=== PATIENT | female | born 1980 | race Caucasian/White ===

== ENCOUNTER 2020-10-14 14:26 | Outpatient (REF) | payer BC, SELFPAY | END 2020-10-14 14:27 | disposition home or self-care (01) | LOC: HO.LAB 14:26 | PROVIDERS: Visit Provider Internal Medicine | DX: Z20.828 Contact with and (suspected) exposure to other viral communicable diseases (principal) | CPT/HCPCS: C9803; U0003 ==

== ENCOUNTER 2022-09-28 16:21 | Outpatient (REF) | payer BC, SELFPAY ==
--- NOTE | ~2022-09-28 | MM_ITS ---
EXAMINATION: MM SCREENING DIGITAL BREAST TOMOSYNTHESIS, BILATERAL CLINICAL INFORMATION: Screening. Asymptomatic. Age 42. No prior breast imaging. No known family history breast cancer. The lifetime risk of breast cancer based on the Tyrer-Cuzick Model is 10%. COMPARISON: None (current study represents initial baseline exam). TECHNIQUE: Digital breast tomosynthesis is performed in both the craniocaudal and mediolateral oblique views along with computer-aided detection (CAD). Synthesized 2D images are generated from the tomosynthesis. FINDINGS: There are scattered areas of fibroglandular density (ACR BI-RADS breast composition Category b). There are no significant masses, abnormal calcifications, or other abnormalities. There is an incidental small intramammary node posterior upper outer left breast. The bilateral axilla and skin contours are unremarkable. MM/MM tomosynthesis screening BI IMPRESSION: No mammographic evidence of malignancy. ASSESSMENT: BI-RADS 2: Benign RECOMMENDATION: Routine annual mammography screening. This patient's information was entered into a reminder system with a target due date for their next mammogram.
== END 2022-09-28 16:22 | disposition home or self-care (01) ==
LOC: HO.MAMMO 16:21
PROVIDERS: PCP Hospitalist; Visit Provider Hospitalist
DX: Z12.31 Encounter for screening mammogram for malignant neoplasm of breast (principal)
CPT/HCPCS: 77063; 77067

== ENCOUNTER 2023-03-08 09:37 | Outpatient (REF) | payer BC, SELFPAY ==
[2023-03-08 11:59] LABS: Hematocrit 43.1 % (37.0-47.0); Hemoglobin 14.7 g/dl (12.0-16.0); Mean Corpuscular HGB Conc 34.1 g/dl (31.0-35.0); Mean Corpuscular Hemoglobin 30.4 pg (27.0-33.0); Mean Platelet Volume 8.5 fL (9.4-12.3); Platelet Count 326 X10*3/uL (160-400); Red Blood Count 4.84 X10*6/uL (4.20-5.50); Red Cell Distribution Width 11.8 % (11.0-16.0); White Blood Count 5.4 X10*3/uL (4.8-10.8)
[2023-03-08 12:31] LABS: Alanine Aminotransferase 8 U/L (0-31); Albumin Level 3.7 g/dL (3.5-5.0); Alkaline Phosphatase 82 U/L (39-117); Anion Gap 12 (12-20); Aspartate Amino Transferase 14 U/L (5-31); Bilirubin Total 1.1 mg/dL (0.0-1.0); Blood Urea Nitrogen 15 mg/dL (9-16); Calcium 8.7 mg/dL (8.4-10.2); Carbon Dioxide 23 mmol/L (22-29); Chloride 109 mmol/L (96-108); Cholesterol 206 mg/dL; Estimated Glomerular Filt Rate > 60; Glucose Fasting 85 mg/dL (60-99); HDL Cholesterol 51 mg/dL; LDL Cholesterol Calculated 142 mg/dl; Potassium 4.4 mmol/L (3.3-5.1); Sodium 140 mmol/L (135-145); Total Protein 6.2 g/dL (6.5-8.0); Triglycerides 69 mg/dL
[2023-03-08 12:40] LABS: TSH reflex Free T4 1.09 uIU/mL (0.32-4.0)
== END 2023-03-08 09:38 | disposition home or self-care (01) ==
LOC: HO.WFDLDS 09:37
PROVIDERS: Visit Provider Hospitalist
DX: Z00.00 Encounter for general adult medical examination without abnormal findings (principal); Z20.2 Contact with and (suspected) exposure to infections with a predominantly sexual mode of transmission; E66.9 Obesity, unspecified; F32.A Depression, unspecified; Z79.899 Other long term (current) drug therapy
CPT/HCPCS: 36415; 80053; 80061; 84443; 85027

== ENCOUNTER 2023-12-20 13:57 | Outpatient (AMB) | payer BC, SELFPAY ==
--- NOTE | 2023-12-20 13:59 | MHC.PC.OV ---
Vital Signs 12/20/23 14:03 Height 5 ft 5 in Weight 180 lb BMI 30.0 BP 118/72 Blood Pressure Location Lt brachial Position Sitting Pulse 59 Pulse Source Pulse Oximeter Pulse Oximetry (%) 98 Oxygen Delivery Method Room Air Intake Visit Reasons: Transfer of care, req. CPE Intake Note: Patient is here as a transfer of care patient, needs primary care. Allergies No Known Allergies Allergy (Unverified 03/04/23 16:01) Tobacco use date assessed: 03/04/23 HPI Transfer of care, req. CPE HPI Details Transfer of Care Prior PCP:? SV Last office visit/CPE:??Greater?than?1?year Acute issue(s): Pt reports she thinks [employer] is at [place]. Has had a mammogram which she states was at [place]. She states she is due. PMHx: Anxiety SurgHx: [place] tooth, eye surgery FHx: Mom: Parkinsons, CVA, Anxiety. SocHx: Nonsmoker. EtOH occasional 1-2 drinks. No drugs. 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 1. Little interest or pleasure in doing things: not at all 2. Feeling down, depressed, or hopeless: not at all 3. Trouble falling or staying asleep, or sleeping too much: not at all 4. Feeling tired or having little energy: several days 5. Poor appetite or overeating: not at all 6. Feeling bad about yourself - or that you are a failure or have let yourself or your family down: not at all 7. Trouble concentrating on things, such as reading the newspaper or watching television: not at all 8. Moving or speaking so slowly that other people could have noticed. Or the opposite - being so fidgety or restless that you have been moving around a lot more than usual: not at all 9. Thoughts that you would be better off or of hurting yourself in some way: not at all Total score: 1 Depression Screening Interpretation: Negative Depression Screening Done: Yes 99451 - PHQ-9 Billing: Yes Source: Developed by Drs. Librado Hi, Martine Freedman, Fer Timmons and colleagues, with an educational norbert from [employer]. Thrive Questionnaire Date Thrive assessed: 03/04/23 I am a: Patient What is your living situation today?: I have a steady place to live Within the past 12 months, did the food you bought not last and you didn't have the money to get more?: Never true Within the past 12 months, did you worry whether your food would run out before you got money to buy more?: Never true Do you have trouble paying for medicines?: No Do you have trouble getting transportation to medical appointments?: No Do you have trouble paying your heating and electricity bill?: No Do you have trouble taking care of your child, family member or friend?: No Do you have trouble with day-to-day activities such as bathing, preparing meals, shopping, managing finances, etc.?: No Are you currently unemployed and looking for a job?: No Are you interested in more education?: No THRIVE Score: 0 AUDIT C Alcohol Use Questionnaire (AUDIT-C) 1. How often do you have a drink containing alcohol?: 2-3 times a week 2. How many drinks containing alcohol do you have on a typical day when you are drinking?: 1 or 2 3. How often do you have six or more drinks on one occasion?: Never Total Score: 3 SANAM-7 AMB Questionnaire SANAM-7 Date SANAM - 7 assessed: 12/20/23 Feeling nervous, anxious, or on edge: 1 = Several days Not being able to stop or control worryin = Not at all Worrying too much about different things: 1 = Several days Trouble relaxin = Not at all Being so restless that it is hard to sit still: 0 = Not at all Becoming easily annoyed or irritable: 0 = Not at all Feeling afraid as if something awful might happen: 0 = Not at all Total SANAM-7 score (0-4 normal; 5-9 mild; 10-14 moderate; 15-21 severe): 2 Source: Developed by Drs. Librado Hi, Martine Freedman, Fer Timmons and colleagues, with an educational norbert from [employer]. SANAM-7 Assessment Billing SANAM-7 Assessment Tool: SANAM-7 Assessment 11082 (Treated) Review of Systems Const Denies chills, Denies fatigue, Denies fever(s), Denies headache(s) and Denies weakness Eyes Denies change in vision ENT Denies dizziness, Denies headache(s), Denies hearing loss, Denies nasal congestion, Denies sinus pain, Denies sinus pressure and Denies sore throat Card Denies chest pain, Denies lightheadedness, Denies dyspnea and Denies other (palpitations) Resp Denies cough, Denies dyspnea and Denies wheezing GI Denies abdominal pain, Denies melena, Denies hematochezia, Denies change in bowel habits, Denies dyspepsia and Denies nausea Denies hematuria and Denies dysuria Musc Denies abnormal gait, Denies myalgias, Denies arthralgias, Denies numbness and Denies tingling Skin/Breast Denies rash, Denies unusual bruising and Denies wounds Neuro Denies abnormal gait, Denies dizziness, Denies headache(s), Denies memory loss, Denies numbness, Denies Sensory deficit (Neuro), Denies tingling and Denies weakness Psych Denies anxiety, Denies depression and Denies memory loss Endo Denies cold intolerance, Denies fatigue, Denies heat intolerance, Denies polydipsia and Denies polyuria Raheem/Lymph Denies easy bleeding and Denies easy bruising Aller/Immun Denies wheezing Physical exam (Primary Care) Vital Signs: Last Vital Signs Pulse 59 12/20/23 14:03 BP 118/72 12/20/23 14:03 Pulse Ox 98 12/20/23 14:03 Oxygen Delivery Method Room Air 12/20/23 14:03 BMI result Body Mass Index 30.0 Tobacco/Smoking Status: Tobacco use Status Tobacco use date assessed 03/04/23 12/20/23 14:00 Patient Tobacco Use Status Never used Tobacco 12/20/23 14:00 PHQ-9: PHQ-9 Score PHQ-9: Total score 1 12/20/23 14:56 Depression Screening Interpretation: Negative Thrive Assessment: Date of Thrive Assessment Date Thrive assessed 03/04/23 12/20/23 14:00 Const General: no acute distress, well developed, alert and awake Nutritional Appearance: well nourished Orientation/consciousness: patient oriented x3 HENMT Head: Yes normocephalic and Yes atraumatic Ears: hearing grossly normal bilaterally and TM's normal bilaterally General nose exam: Normal external nose present and Normal nares present Mouth: Normal oral and palatal mucosa present and moist mucous membranes Teeth and gingiva: dentition normal Throat: Yes posterior oropharynx normal Eyes General: appearance normal, both eyes and all related structures Pupils: Equal, round and reactive pupils present and Pupil accommodation reflex normal EOM: EOMs intact bilaterally Neck Neck: Yes normal visual inspection, Yes no lymphadenopathy and Yes trachea midline Thyroid: Thyroid normal Carotids: no bruits Lymphatic: no lymphadenopathy noted Chest Chest palpation & inspection: normal inspection of the chest Resp Effort & Inspection: normal respiratory effort Auscultation: clear to auscultation bilaterally Cardio Rate: regular rate Rhythm: regular rhythm Heart sounds: S1 normal heart sound present, S2 normal heart sound present, no gallops, no murmurs and no rubs Bruits: no abdominal aortic bruits and no carotid bruits GI Palpation (GI): No Abdominal aortic bruit present, Soft to palpation, nontender, No hepatosplenomegaly present and No Rebound tenderness present Auscultation: normal bowel sounds General: Yes no CVA tenderness Back/Spine/Pelvis Back: no CVA tenderness Cervical Spine: cervical ROM normal and No Cervical spine tenderness Thoracic/Lumbar Spine: thoraco-lumbar ROM normal, No pain with thoraco-lumbar ROM, No thoracic spinal tenderness and No lumbar spinal tenderness Skin Lesions: no lesions Rashes: no rashes Trauma: no lacerations or abrasions Wounds: no wounds Nails: normal Neuro General: patient oriented x3 Cranial nerves: Yes Equal, round and reactive pupils present Cognition (Neuro): normal cognition Gait exam (Neuro): Normal gait present Motor exam (neuro): 5/5 motor strength present throughout Sensory Exam: No Sensory deficit (Neuro) Deep tendon reflexes (DTR's): Right patellar reflex intensity grade: 2+ and Left patellar reflex intensity grade: 2+ Extrem General: Yes normal to inspection and No edema Psych Appearance: grossly normal Affect: normal affect Attitude: cooperative Thought process: Normal thought process present Assessment and Plan Assessment & Plan (1) Adult general medical exam: Code(s): Z00.00 - Encounter for general adult medical examination without abnormal findings Plan: 43-year-old?female?presents?for?complete?physical?exam Encouraged?healthy?diet?with?active?lifestyle?and?plenty?of?exercise (2) Anxiety: Code(s): F41.9 - Anxiety disorder, unspecified Plan: Controlled?with?citalopram. 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 Panel Fast Today Z00.00 - Encounter for general adult medical examination without abnormal findings Lipid Panel Today Z00.00 - Encounter for general adult medical examination without abnormal findings Microalbumin, Random (w Creat) Today I10 - Essential (primary) hypertension UA and rflx microscopic Today Z00.00 - Encounter for general adult medical examination without abnormal findings TSH reflex Free T4 Today Z00.00 - Encounter for general adult medical examination without abnormal findings MM tomosynthesis screening BI Today Z12. - Encounter for screening mammogram for malignant neoplasm of breast Coding Level of Care Code Est Pt Level 3 (65656) Diagnoses Adult general medical exam Z00. Anxiety F41.9 Eye irritation H57.89 Screening mammogram for breast cancer Z12.31 Screening for cervical cancer Z12.4 Additional Codes SANAM-7 Assessment Billing - SANAM-7 Assessment Tool: SANAM-7 Assessment 53529 ([id number])
[2023-12-20 14:03] VITALS: BP 118/72; PULSE 59; O2SAT 98
== END 2023-12-20 15:12 | disposition home or self-care (01) ==
PROVIDERS: PCP Hospitalist; Visit Provider Family Medicine
DX: Z00.00 Encounter for general adult medical examination without abnormal findings (principal); F41.9 Anxiety disorder, unspecified; H57.89 Other specified disorders of eye and adnexa
CPT/HCPCS: 99396

== ENCOUNTER 2024-01-13 08:01 | Outpatient (REF) | payer BC, SELFPAY ==
[2024-01-13 11:42] LABS: Appearance Urine Clear; Color Urine Yellow; Glucose Urine UA Negative (Negative); Leukocyte Esterase Urine Trace (Negative); Nitrite Urine Negative (Negative); PH 7.5 (5.0-9.0); UMIC TRIGGER UA YES; Urine Blood Negative (Negative); Urine Ketones Negative (Negative); Urine Protein Negative (Neg-Trace)
[2024-01-13 11:47] LABS: Bacteria Urine 1+ (None Seen); Hyaline Casts Urine 0-2 /LPF (0-2); RBC Urine 0-2 /HPF (0-2); WBC Urine 0-5 /HPF (0-5)
[2024-01-13 12:40] LABS: Creatinine Urine 126.74 mg/dL; Microalbumin Urine < 5.0 mg/L
[2024-01-13 13:29] LABS: Alanine Aminotransferase 12 U/L (0-31); Albumin Level 3.9 g/dL (3.5-5.0); Alkaline Phosphatase 78 U/L (39-117); Anion Gap 12 (12-20); Aspartate Amino Transferase 15 U/L (5-31); Bilirubin Total 0.7 mg/dL (0.0-1.0); Blood Urea Nitrogen 10 mg/dL (9-16); Carbon Dioxide 25 mmol/L (22-29); Chloride 109 mmol/L (96-108); Cholesterol 192 mg/dL (<200); Estimated Glomerular Filt Rate > 60; Glucose Fasting 87 mg/dL (60-99); HDL Cholesterol 55 mg/dL (>40); LDL Cholesterol Calculated 125 mg/dL (<100); Potassium 4.7 mmol/L (3.3-5.1); Sodium 141 mmol/L (135-145); Total Protein 6.9 g/dL (6.5-8.0); Triglycerides 60 mg/dL (<150)
== END 2024-01-13 08:02 | disposition home or self-care (01) ==
LOC: HO.WFDLDS 08:01
PROVIDERS: Visit Provider Family Medicine
DX: Z00.00 Encounter for general adult medical examination without abnormal findings (principal); I10 Essential (primary) hypertension
CPT/HCPCS: 36415; 80053; 80061; 81001; 82043; 82570; 84443

== ENCOUNTER 2024-01-15 14:42 | Outpatient (AMB) | payer BC, SELFPAY ==
--- NOTE | 2024-01-15 14:36 | MHC.PC.OV ---
Intake Visit Reasons: f/u [facility] [phone] Intake Note: Patient is following up on her labs. Allergies No Known Allergies Allergy (Unverified 01/15/24 14:41) Tobacco use date assessed: 01/15/24 Dental Screening Dental Screen Date: 01/15/24 Did you have a dental visit in the last 12 months?: Yes Did you have a dental problem in the last 6 months where you did not have access to dental care?: No Was dental information given to patient?: Patient has dentist HPI f/u [facility] [phone] HPI Details 43 y/o female presents to f/u [facility] via telemedicine. Labs were drawn 01/13/24. Reviewed labs with pt. Triglycerides 60. TC 192. LDL 125. HDL 55. She notes she has been exercising more and has been trying to eat better. 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 Librado Hi, Martine Freedman, Fer Timmons and colleagues, with an educational norbert from [employer]. Physical exam (Primary Care) Tobacco/Smoking Status: Tobacco use Status Tobacco use date assessed 01/15/24 01/15/24 14:38 Patient Tobacco Use Status Never used Tobacco 01/15/24 14:38 e-Cigarette/Vaping Use Never Used 01/15/24 14:41 Thrive Assessment: Date of Thrive Assessment Date Thrive assessed 03/04/23 01/15/24 14:38 Telehealth Telehealth Location of provider rendering services: practice address Location of patient: address on file Patient Identification confirmed using: Name, : Yes Telehealth method: voice only Patient verbally consented to treatment: Yes Patient verbally consented to billing insurance company: Yes Patient informed of any privacy concerns related to visit: Yes Minutes spent on Phone/Video with Pt.: 6 Assessment and Plan Assessment & Plan (1) Screening mammogram for breast cancer: Code(s): Z12.31 - Encounter for screening mammogram for malignant neoplasm of breast Plan: Her?mammogram?is?ordered?and?she?will?get?this?scheduled (2) Elevated LDL cholesterol level: Code(s): E78.00 - Pure hypercholesterolemia, unspecified Plan: Cholesterol?levels?are?improved.??She?had?lost?about?16?lb?from?her?prior?check?in?March?2022 Cholesterol?levels?now?within?normal?range Encouraged?weight?loss?and?exercise (3) Asymptomatic bacteriuria: Code(s): R82.71 - Bacteriuria Plan: Encouraged?hydration Orders: Orders Comprehensive [place]. Panel Fast 10 Months Z00.00 - Encounter for general adult medical examination without abnormal findings Lipid Panel 10 Months Z00.00 - Encounter for general adult medical examination without abnormal findings TSH reflex Free T4 10 Months Z00.00 - Encounter for general adult medical examination without abnormal findings UA and rflx microscopic 10 Months Z00.00 - Encounter for general adult medical examination without abnormal findings Microalbumin, Random (w Creat) 10 Months I10 - Essential (primary) hypertension Coding Level of Care Code Tele Est Pt Level 2 (05805) Diagnoses Screening mammogram for breast cancer Z12. Elevated LDL cholesterol level E78.00 Asymptomatic bacteriuria R82.71
== END 2024-01-15 17:00 ==
LOC: HO.HMGFM 14:42
PROVIDERS: PCP Hospitalist; Visit Provider Family Medicine
DX: E78.00 Pure hypercholesterolemia, unspecified (principal); Z12.31 Encounter for screening mammogram for malignant neoplasm of breast; R82.71 Bacteriuria
CPT/HCPCS: 99441

== ENCOUNTER 2024-05-19 14:47 | Outpatient (REF) | payer BC, SELFPAY ==
[2024-05-19 18:05] LABS: Appearance Urine Clear; Color Urine Yellow; Glucose Urine UA Negative (Negative); Leukocyte Esterase Urine Trace (Negative); Nitrite Urine Negative (Negative); PH 5.5 (5.0-9.0); UMIC TRIGGER UA YES; Urine Blood Negative (Negative); Urine Ketones Negative (Negative); Urine Protein Negative (Neg-Trace)
[2024-05-19 18:10] LABS: Bacteria Urine Trace (None Seen); Hyaline Casts Urine 0-2 /LPF (0-2); RBC Urine 0-2 /HPF (0-2); Squamous Epithelial Cell Urine 0-2 /HPF (0-2); WBC Urine 0-5 /HPF (0-5)
[2024-05-20 04:00] LABS: Syphilis Screen Nonreactive (Nonreactive)
[2024-05-20 04:11] LABS: HBc Num1 0.11 S/CO (0.00-0.79); HBsAGNum1 0.26 S/CO (0.00-0.99); HIV AB/AG Nonreactive (Nonreactive); HIV Num 1 0.05 S/CO (0.00-0.99); Hepatitis B Core Antibody Nonreactive (Nonreactive); Hepatitis B Surface Antigen Negative (Negative); ~HepC Num1 0.14 S/CO (0.00-0.79); ~Hepatitis B Surface Antibody REACTIVE (Nonreactive); ~Hepatitis C Antibody Nonreactive (Nonreactive)
== END 2024-05-19 14:48 | disposition home or self-care (01) ==
LOC: HO.WFDLDS 14:47
PROVIDERS: Visit Provider Family Medicine
DX: Z11.3 Encounter for screening for infections with a predominantly sexual mode of transmission (principal)
CPT/HCPCS: 36415; 81001; 86704; 86706; 86780; 86803; 87340; 87389

== ENCOUNTER 2024-05-27 13:41 | Outpatient (REF) | payer BC, SELFPAY | END 2024-05-27 13:42 | disposition home or self-care (01) | LOC: HO.MAMMO 13:41 | PROVIDERS: PCP Family Medicine; Visit Provider Family Medicine | DX: Z12.31 Encounter for screening mammogram for malignant neoplasm of breast (principal) | CPT/HCPCS: 77063; 77067 ==

== ENCOUNTER → 2024-05-27 13:45 | Outpatient (BNV) | payer BC, SELFPAY | PROVIDERS: PCP Family Medicine; Visit Provider Radiology Diagnostic Radiology | DX: Z12.31 Encounter for screening mammogram for malignant neoplasm of breast (principal) | CPT/HCPCS: 77063; 77067 ==

== ENCOUNTER 2024-05-27 14:27 | Outpatient (REF) | payer BC, SELFPAY ==
[2024-05-28 06:07] LABS: CT PCR NOT DETECTED (Not Detect.); NG PCR NOT DETECTED (Not Detect.)
== END 2024-05-27 14:28 | disposition home or self-care (01) ==
LOC: HO.WFDLDS 14:27
PROVIDERS: Visit Provider Family Medicine
DX: Z11.3 Encounter for screening for infections with a predominantly sexual mode of transmission (principal)
CPT/HCPCS: 87491; 87591

== ENCOUNTER 2025-01-20 14:11 | Outpatient (AMB) | payer BC, SELFPAY ==
--- NOTE | 2025-01-20 14:26 | MHC.PC.OV ---
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 She normally follows with Dr. Johnston. CV: Blood pressure today in the office is 102/82. She eats healthy and exercises. Denies any chest pain or shortness on breath. Psych: used to be on celexa but feels well. Derm: Reports a mole that she noticed the other day on her mid back. No known family history of skin cancer but her mother has had multiple things excised. 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 1. Little interest or pleasure in doing things: not at all 2. Feeling down, depressed, or hopeless: not at all 3. Trouble falling or staying asleep, or sleeping too much: not at all 4. Feeling tired or having little energy: several days 5. Poor appetite or overeating: not at all 6. Feeling bad about yourself - or that you are a failure or have let yourself or your family down: not at all 7. Trouble concentrating on things, such as reading the newspaper or watching television: not at all 8. Moving or speaking so slowly that other people could have noticed. Or the opposite - being so fidgety or restless that you have been moving around a lot more than usual: not at all 9. Thoughts that you would be better off or of hurting yourself in some way: not at all Total score: 1 Depression Screening Interpretation: Negative Depression Screening Done: Yes 82263 - PHQ-9 Billing: Yes Source: Developed by Drs. Librado Hi, Martine Freedman, Fer Timmons and colleagues, with an educational norbert from [email or web address]. Thrive Questionnaire Date Thrive assessed: 01/20/25 I am a: Patient What is your living situation today?: I have a steady place to live Within the past 12 months, did the food you bought not last and you didn't have the money to get more?: Never true Within the past 12 months, did you worry whether your food would run out before you got money to buy more?: Never true Do you have trouble paying for medicines?: No Do you have trouble getting transportation to medical appointments?: No Do you have trouble paying your heating and electricity bill?: No Do you have trouble taking care of your child, family member or friend?: No Do you have trouble with day-to-day activities such as bathing, preparing meals, shopping, managing finances, etc.?: No Are you currently unemployed and looking for a job?: No Are you interested in more education?: No Please select the resources that you would like help with: None Currently or been in a relationship where the following occur: No concerns reported THRIVE Score: 0 SANAM-7 AMB Questionnaire SANAM-7 Date SANAM - 7 assessed: 12/20/23 Source: Developed by Drs. Librado Hi, Martine Freedman, Fer Timmons and colleagues, with an educational norbert from [email or web address]. Physical exam (Primary Care) Vital Signs: Last Vital Signs Pulse 77 01/20/25 14:31 Resp 14 01/20/25 14:31 BP 102/82 01/20/25 14:31 Pulse Ox 98 01/20/25 14:31 Oxygen Delivery Method Room Air 01/20/25 14:31 BMI result Body Mass Index 28.8 Tobacco/Smoking Status: Tobacco use Status Tobacco use date assessed 01/20/25 01/20/25 14:26 Patient Tobacco Use Status Never used Tobacco 01/20/25 14:26 e-Cigarette/Vaping Use Never Used 01/20/25 14:26 PHQ-9: PHQ-9 Score PHQ-9: Total score 1 01/20/25 14:26 Depression Screening Interpretation: Negative Thrive Assessment: Date of Thrive Assessment Date Thrive assessed 01/20/25 01/20/25 14:26 Currently or been in a relationship where the following occur: No concerns reported Const Orientation/consciousness: patient oriented x3 HENMT Ears: hearing grossly normal bilaterally and TM's normal bilaterally General nose exam: No nasal polyps present Face and sinus: Yes sinuses nontender Mouth: Normal oral and palatal mucosa present Eyes Pupils: Equal, round and reactive pupils present EOM: EOMs intact bilaterally Neck Other: There is a right anterior possible thyroid nodule. Neck: Yes full ROM and Yes no lymphadenopathy Chest Chest palpation & inspection: normal inspection of the chest Resp Auscultation: clear to auscultation bilaterally Cardio Rate: regular rate Rhythm: regular rhythm Heart sounds: S1 normal heart sound present and S2 normal heart sound present Peripheral pulses: Peripheral pulses 2+ throughout GI Other: Soft, nontender Auscultation: normal bowel sounds Rectal Exam - Female: deferred General: Yes no CVA tenderness Back/Spine/Pelvis Other: Nontender Back: no CVA tenderness Skin Other: There is a 1 cm by half a cm hyperpigmented lesion with an irregular bordered noted in the mid back. Neuro General: patient oriented x3, gait normal, CN's II-XI intact bilaterally and deep tendon reflexes 2+ bilaterally Cranial nerves: Yes Equal, round and reactive pupils present Motor exam (neuro): 5/5 motor strength present throughout Sensory Exam: double simultaneous stimulation for sensation normal Coordination: [id number] test normal and Romberg test negative Extrem General: Yes normal to inspection and Yes full ROM Psych Affect: normal affect Attitude: cooperative Thought process: Normal thought process present Thought content: Normal thought content present Insight: Good insight present (Psych) Judgement: Good judgement present (Psych) Coding Level of Care Code Est Pt Prev Care 40-64y(61775) Diagnoses Adult general medical exam Z00.00 Lump in neck R22.1 Skin lesion of back L98.9 Additional Codes PHQ-9 - 83324 - PHQ-9 Billing: Yes ([id number]) Assessment & Plan Assessment & Plan (1) Adult general medical exam: Code(s): Z00.00 - Encounter for general adult medical examination without abnormal findings Category: Medical Plan: Health maintenance reviewed. Labs ordered. Referral for colonoscopy given that they are booking so far out I will place the referral now. Referral to gynecology. (2) Lump in neck: Code(s): R22.1 - Localized swelling, mass and lump, neck Category: Medical Plan: Ultrasound ordered. (3) Skin lesion of back: Code(s): L98.9 - Disorder of the skin and subcutaneous tissue, unspecified Category: Medical Plan: Referral to Dermatology. Orders: Orders Comprehensive [place]. Panel Fast Today Z00.00 - Encounter for general adult medical examination without abnormal findings US soft tiss head and/or neck Today R22.1 - Localized swelling, mass and lump, neck Complete Blood Count Auto Diff Today Z00.00 - Encounter for general adult medical examination without abnormal findings Lipid Panel Today Z00.00 - Encounter for general adult medical examination without abnormal findings TSH reflex Free T4 Today Z00.00 - Encounter for general adult medical examination without abnormal findings Referrals Gastroenterology Referral Z12.11 - Encounter for screening for malignant neoplasm of colon INS[employer]LOADER Referral Z01.419 - Encounter for gynecological examination (general) (routine) without abnormal findings Dermatology Referral L98.9 - Disorder of the skin and subcutaneous tissue, unspecified
[2025-01-20 14:31] VITALS: BP 102/82; PULSE 77; RESP 14; O2SAT 98; BMI 28.8
== END 2025-01-20 17:05 ==
PROVIDERS: PCP Family Medicine; Visit Provider Physician Assistant
DX: Z00.00 Encounter for general adult medical examination without abnormal findings (principal); R22.1 Localized swelling, mass and lump, neck; L98.9 Disorder of the skin and subcutaneous tissue, unspecified

== ENCOUNTER → 2025-01-20 14:11 | Outpatient (BNVA) | payer BC, SELFPAY | PROVIDERS: PCP Family Medicine; Visit Provider Physician Assistant | DX: Z00.01 Encounter for general adult medical examination with abnormal findings (principal); R22.1 Localized swelling, mass and lump, neck; L98.9 Disorder of the skin and subcutaneous tissue, unspecified | CPT/HCPCS: 96127 ==

== ENCOUNTER 2025-01-22 08:47 | Outpatient (REF) | payer BC, SELFPAY ==
--- OUTSIDE RECORDS SUMMARY | 2025-01-22 09:08 | XMS_ITS | Encounter Summary ---
Author Organization [facility] Address [address] [place] [address] Care Team Providers Care Washing Machine Installer Name Role Phone Jennifer Wright MD Primary Care Provider Charan newton [facility], Pcp Primary Care Provider Unavailabl e Encounter Details Date Type Department Care Team Description 03/29/2010 SCAN Medical Records [address] [place] [id number] Abstract, Provider Social History Tobacco Use Types Packs/Day Years Used Date Smoking Tobacco: Never Alcohol Use Standard Drinks/Week Comments Yes 0 (1 standard drink = 0.6 oz pur e alcohol) occ Sex Assigned at Date Recorded Not on file documented as of this encounter Plan of Treatment Not on file documented as of this encounter Visit Diagnoses Not on filedocumented in this encounter Care Teams Washing Machine Installer Relationship Specialty Start Date End Date Jennifer Wright MD PCP - General 08/18/09 07/15/22 [facility], Pcp PCP - General Internal Medicine 07/16/22 documented as of this encounter
--- OUTSIDE RECORDS SUMMARY | 2025-01-22 09:08 | XMS_ITS | Encounter Summary ---
Author Organization [facility] Address [address] [place] [address] Care Team Providers Care Financial Service Rep Name Role Phone Jennifer Wright MD Primary Care Provider Charan newton [facility], Pcp Primary Care Provider Unavailabl e Encounter Details Date Type Department Care Team Description 06/16/2014 Orders Only TILLER WORKER - [address] [address] Social History Tobacco Use Types Packs/Day Years Used Date Smoking Tobacco: Never Smokeless Tobacco: Never Alcohol Use Standard Drinks/Week Comments Yes 0 (1 standard drink = 0.6 oz pur e alcohol) occ Sex Assigned at Date Recorded Not on file documented as of this encounter Plan of Treatment Not on file documented as of this encounter Visit Diagnoses Not on filedocumented in this encounter Care Teams Financial Service Rep Relationship Specialty Start Date End Date Jennifer Wright MD PCP - General 08/18/09 07/15/22 [facility], Pcp PCP - General Internal Medicine 07/16/22 documented as of this encounter
--- OUTSIDE RECORDS SUMMARY | 2025-01-22 09:08 | XMS_ITS | Encounter Summary ---
Author Organization [facility] Address [address] [place] [address] Care Team Providers Care Ornament Stitcher Name Role Phone Jennifer Wright MD Primary Care Provider [facility], Pcp Primary Care Provider Unavailabl e Reason for Visit * Reason Comments E-prescribe Rx Request Encounter Details Date Type Department Care Team Description 11/10/2021 Refill Medicine/Pediatrics - [address] [phone] Fabienne Henderson, FORGING PRESS LEVER TENDER E-prescribe Rx Request Social History Tobacco Use Types Packs/Day Years Used Date Smoking Tobacco: Never Smokeless Tobacco: Never Alcohol Use Standard Drinks/Week Comments Yes 0 (1 standard drink = 0.6 oz pur e alcohol) couple drinks every week or 2 Sex Assigned at Date Recorded Not on file COVID-19 Exposure Response Date Recorded In the last month, have you been in contact with someone who was confirmed or suspected to have Coronavirus / COVID-19? No / Unsure 10/18/2021 3:31 PM EST documented as of this encounter Miscellaneous Notes * Telephone Encounter - Rudy Powers - 11/13/2021 1:57 PM EST Last OV 10/18/21. Upcoming Appt: 11/16/21. Lab Results Component Value Date ALB 3.7 10/19/2021 SGOT 12 10/19/2021 SGPT 18 10/19/2021 TBILI 0.5 10/19/2021 ALKPHOS 111 10/19/2021 TP 7.3 10/19/2021 * Telephone Encounter - Machelle Barker - 11/13/2021 12:15 PM EST Patient would like script to be: E-PRESCRIBED/FAXED TO PHARMACY WHEN WAS THE PATIENT'S LAST APPOINTMENT IN ADULT MEDICINE? 10/18/21 WHEN WAS THE LAST TIME THE PATIENT SAW THEIR PCP? UNKNOWN Does patient have an upcoming appointment? Yes 11/16/21 (THE MEDICATION REQUESTED IS ON THE MED LIST ABOVE) All of the medications requested were on the CURRENT MEDS list Did you check the Pharmacy information above?: YES Patient wants: 30 -day supply Is this a mail order prescription request ? NO If the refill is from a FAXED refill request what is the RX # listed on the fax? N/A Patients current insurance carrier is: Payor: [facility] FFS / Plan: [employer] $15 / Product Type: HMO [id number] documented in this encounter Plan of Treatment Not on file documented as of this encounter Visit Diagnoses Not on filedocumented in this encounter Care Teams Ornament Stitcher Relationship Specialty Start Date End Date Jennifer Wright MD PCP - General 08/18/09 07/15/22 [facility], Pcp PCP - General Internal Medicine 07/16/22 documented as of this encounter
--- OUTSIDE RECORDS SUMMARY | 2025-01-22 09:08 | XMS_ITS | Clinical Summary ---
Author Organization [facility] Address [address] [place] [address] Care Team Providers Care Home Health Registered Nurse Name Role Phone [facility], Pcp Primary Care Provider Unavailabl e Allergies Active Allergy Reactions Severity Noted Date Comments Beef Allergy 06/21/2016 Itching and throat irritation Medications Medication Sig Dispensed Refills Start Date End Date Status IUD'S IU IUD None Entered 0 Active EPINEPHrine (EpiPen 2-Brent) 0.3 MG/0.3ML Solution Auto-injector Inject 1 Units as directed as needed (for allergic reaction/anaphylax is). 1 Each 2 10/18/2021 Active citalopram (CELEXA) 20 MG tablet TAKE 1 TABLET BY MOUTH EVERY DAY 30 Tablet 0 07/18/2022 Active Active Problems Problem Noted Date Snoring 03/29/2019 Overview: 03/2019 Home Sleep Study did not reveal sleep apnea. Anxiety 03/27/2011 Overweight 11/21/2010 Acne 10/03/2009 Immunizations Name Administration Dates Next Due Influenza (> 6 Months) 08/31/2020,2018,11/21/2010(Deferred: Patient Refused),10/04/2006,10/04/2005 Tdap 11/21/2010 Family History Medical History Relation Name Comments No Known Problems Father No Known Problems Mother CA Colon Paternal Grandfather CA Ovarian Paternal Grandmother possibl e, had hysterectomy for unknown reason No Known Problems Sister CA Esophageal Uncle metastatic to pancreas and brain CA Breast Negative Hx CA Prostate Negative Hx CA of Pancreas Negative Hx Cancer of Small Bowel Negative Hx Cancer of the Prostate Negative Hx Uterine Cancer Negative Hx Relation Name Status Comments Daughter Alive 2004, Prachi cervantes lthy Father Alive healthy, anxiet y Maternal Grandfather (Age age 60 ) [place] Maternal Grandmother diabete s, glaucoma Mother Alive sleep apnea , o bese, anxiety; hx [place] Paternal Grandfather stroke, anemia, Paternal Grandmother blocked artery Sister Alive adopted; mental health and developmental issues Son Alive 2006; Serge cervantes lthy Uncle Social History Tobacco Use Types Packs/Day Years Used Date Smoking Tobacco: Never Smokeless Tobacco: Never Alcohol Use Standard Drinks/Week Comments Yes 0 (1 standard drink = 0.6 oz pur e alcohol) couple drinks every week or 2 Sex Assigned at Date Recorded Not on file Last Filed Vital Signs Vital Sign Reading Time Taken Comments Blood Pressure 98/64 12/18/2021 1:56 PM EST Pulse 76 12/18/2021 1:56 PM EST Temperature 36.6 ??C (97.9 ??F) 12/18/2021 1:25 PM ES T Respiratory Rate 16 12/18/2021 1:56 PM EST Oxygen Saturation 98% 11/16/2021 3:54 PM EST RA Inhaled Oxygen Concentration - - Weight 81.6 kg (180 lb) 12/18/2021 1:56 PM EST Height 165.1 cm (5' 5 ) 11/16/2021 3:54 PM EST Body Mass Index 29.95 11/16/2021 3:54 PM EST Plan of Treatment Health Maintenance Due Date Last Done Comments Covid-19 Vaccine (#1) 1980 MAMMOGRAM 2020 DTAP/TDAP/TD (2 - Td or Tdap) 11/21/2020 11/21/2010 BASELINE HEALTH EXAM 40-64 09/04/202109/04, 09/04/2019, 09/04/2019, Additional history exists INFLUENZA (#1) 2024 08/31/2020, 09/02, 09/26/2019, Additional history exists CHOLESTEROL SCREENING 09/04/2024 09/04/2019 , 07/06/2016, 11/29/2010, Additional history exists BMI CHECK/ADVISE 12/02/2024 09/04/2019, 11/2018, 07/31/2017, Additional history exists CERVICAL CANCER SCREENING 12/18/20262021, 06/10/2014, 2011 (Exception), Additional history exists PNEUMOCOCCAL VACCINE FOR HIG H RISK PATIENTS (#1) 2045 Care Teams Home Health Registered Nurse Relationship Specialty Start Date End Date Community, Pcp PCP - General Internal Medicine 07/16/22
--- OUTSIDE RECORDS SUMMARY | 2025-01-22 09:08 | XMS_ITS | Encounter Summary ---
Author Organization [facility] Address [address] [place] [address] Care Team Providers Care Willow Worker Name Role Phone Jennifer Martino MD Primary Care Provider [facility], Pcp Primary Care Provider Unavailabl e Reason for Visit * Reason Onset Date Comments Wine Merchant Feedback 12/05/2021 Insurance Auth ( Tania Banda) Encounter Details Date Type Department Care Team Description 12/05/2021 Telephone Medicine/Pediatrics - [address] [phone] Jennifer Martino MD Wine Merchant Feedback (Insurance Auth (Tania Banda)) Social History Tobacco Use Types Packs/Day Years [...] have Coronavirus / COVID-19? No / Unsure 11/16/2021 3:39 PM EST documented as of this encounter Miscellaneous Notes * Telephone Encounter - Leatha Lisandro - 12/05/2021 1:14 PM EST Subscriber: SHASHI SCHMIDT Submitter : JENNIFER MARTINO Submitter Type: Provider Referral (#[id number]) Specialty Care Review Type: Initial Certification Status : Certified in total Service Type : Consultation Place Of Service : Office Visits : 6 Service Date : 12/05/2021-12/05/2022 Service Providers Provider Name ID Provider Type Specialty MD TANIA BANDA NPI : [id number] Performing Specialist documented in this encounter Plan of Treatment Not on file documented as of this encounter Visit Diagnoses Not on filedocumented in this encounter Care Teams Willow Worker Relationship Specialty Start Date End Date Jennifer Martino MD PCP - General 08/18/09 07/15/22 [facility], Pcp PCP - General Internal Medicine 07/16/22 documented as of this encounter
--- OUTSIDE RECORDS SUMMARY | 2025-01-22 09:09 | XMS_ITS | Encounter Summary ---
Author Organization [facility] Address [address] [place] [address] Care Team Providers Care Entry Driver Operator Name Role Phone Jennifer Wright MD Primary Care Provider [facility], Pcp Primary Care Provider Unavailabl e Reason for Visit * Reason Onset Date Comments E-prescribe Rx Request 2011 celexa Encounter Details Date Type Department Care Team Description 2011 Refill Medicine/Pediatrics - [address] [phone] Rose Marie Leyva PA-C E-prescribe Rx Request (celexa) Social History Tobacco Use Types Packs/Day Years Used Date Smoking Tobacco: Never Smokeless Tobacco: Never Alcohol Use Standard Drinks/Week Comments Yes 0 (1 standard drink = 0.6 oz pur e alcohol) occ Sex Assigned at Date Recorded Not on file documented as of this encounter Miscellaneous Notes * Telephone Encounter - Lena Guzman - 2011 9:04 AM EDT WHEN WAS THE PATIENT'S LAST APPOINTMENT IN ADULT MEDICINE? 03/12 WHEN WAS THE LAST TIME THE PATIENT SAW THEIR PCP? 11/10 pt has been seeing kenan elyva and she had aphy with kenna at this visit Does patient have an upcoming appointment? Yes 06/11 (THE MEDICATION REQUESTED IS ON THE MED LIST ABOVE) All of the medications requested were on the CURRENT MEDS list Did you check the Pharmacy information above?: YES Is this a mail order prescription request? NO Indicate how soon the patient needs the script: MALINI Patient would like script to be: FAXED TO PHARMACY Is the doctor here today?: YES Can the message wait until the doctor returns?: NO Patients current insurance carrier is: Payor: [employer] POS Plan: PPO $0 [employer] [id number] Product Type: PPO [id number] documented in this encounter Plan of Treatment Not on file documented as of this encounter Visit Diagnoses Not on filedocumented in this encounter Care Teams Entry Driver Operator Relationship Specialty Start Date End Date Jennifer Wright MD PCP - General 08/18/09 07/15/22 [facility], Pcp PCP - General Internal Medicine 07/16/22 documented as of this encounter
[2025-01-22 11:08] LABS: MANUAL DIFF FLAG NO
[2025-01-22 11:11] LABS: Basophils Percent Auto 0.7 % (0-2); Eosinophils Absolute Auto 0.1 X10*3/uL (0.0-0.4); Eosinophils Percent Auto 1.6 % (0-4); Hematocrit 44.3 % (37.0-47.0); Hemoglobin 14.9 g/dl (12.0-16.0); Imm Gran Abs Auto 0.02 X10*3/uL (0.00-0.03); Imm Gran Pct Auto 0.4 % (0.0-0.4); Lymphocytes Absolute Auto 1.4 X10*3/uL (1.2-4.9); Lymphocytes Percent Auto 25.9 % (20-40); Mean Corpuscular HGB Conc 33.6 g/dl (31.0-35.0); Mean Corpuscular Hemoglobin 29.7 pg (27.0-33.0); Mean Corpuscular Volume 88.4 fL (80.0-98.0); Mean Platelet Volume 8.7 fL (9.4-12.3); Monocytes Absolute Auto 0.3 X10*3/uL (0.1-1.2); Monocytes Percent Auto 5.9 % (2-11); Neutrophils Absolute Auto 3.6 x10*3/uL (2.0-8.3); Neutrophils Percent Auto 65.5 % (45-73); Platelet Count 313 X10*3/uL (160-400); Red Blood Count 5.01 X10*6/uL (4.20-5.50); Red Cell Distribution Width 12.1 % (11.0-16.0); White Blood Count 5.6 X10*3/uL (4.8-10.8)
[2025-01-22 11:34] LABS: Alanine Aminotransferase 12 U/L (0-31); Albumin Level 4.1 g/dL (3.5-5.0); Alkaline Phosphatase 66 U/L (39-117); Anion Gap 10 (12-20); Aspartate Amino Transferase 19 U/L (5-31); Bilirubin Total 0.9 mg/dL (0.0-1.0); Blood Urea Nitrogen 10 mg/dL (9-16); Calcium 9.2 mg/dL (8.4-10.2); Carbon Dioxide 26 mmol/L (22-29); Chloride 108 mmol/L (96-108); Cholesterol 225 mg/dL (<200); Estimated Glomerular Filt Rate > 60; Glucose Fasting 82 mg/dL (60-99); HDL Cholesterol 49 mg/dL (>40); LDL Cholesterol Calculated 160 mg/dL (<100); Potassium 3.9 mmol/L (3.3-5.1); Sodium 140 mmol/L (135-145); Total Protein 7.5 g/dL (6.5-8.0); Triglycerides 82 mg/dL (<150)
[2025-01-22 11:40] LABS: TSH reflex Free T4 1.34 uIU/mL (0.32-4.0)
== END 2025-01-22 08:48 | disposition home or self-care (01) ==
LOC: HO.WFDLDS 08:47
PROVIDERS: Visit Provider Physician Assistant
DX: Z00.00 Encounter for general adult medical examination without abnormal findings (principal); Z13.6 Encounter for screening for cardiovascular disorders
CPT/HCPCS: 36415; 80053; 80061; 84443; 85025

== ENCOUNTER 2025-02-16 16:05 | Outpatient (REF) | payer BC, SELFPAY | END 2025-02-16 16:06 | disposition home or self-care (01) | LOC: HO.US 16:05 | PROVIDERS: Visit Provider Physician Assistant | DX: R22.1 Localized swelling, mass and lump, neck (principal) | CPT/HCPCS: 76536 ==

== ENCOUNTER → 2025-02-16 16:07 | Outpatient (BNV) | payer BC, SELFPAY | PROVIDERS: Visit Provider Radiology Diagnostic Radiology | DX: R22.1 Localized swelling, mass and lump, neck (principal) | CPT/HCPCS: 76536 ==

== ENCOUNTER 2025-03-10 15:59 | Outpatient (AMB) | payer BC, SELFPAY ==
--- NOTE | 2025-03-10 15:32 | MHC.PC.OV ---
Intake Visit Reasons: Test results Intake Note: Discuss anxiety and results. Cluster Bore Operator Required: No Allergies No Known Allergies Allergy (Verified 03/10/25 15:32) Medication List - Last Reconciled 03/10/25 by Leisa Bryant PA-C levonorgestrel (Mirena) intrauterine Tobacco use date assessed: 03/10/25 Dental Screening Dental Screen Date: 01/15/24 HPI Test results HPI Details Pt is a 44 year old female who presents today for a f/u Psych: used to be on celexa and wonders if she should go back on this as recently her anxiety has been exacerbated. Recently had a neck ultrasound for an enlarged lymph node which was overall benign appearing. She says that she still feels a lymph node and at times it is makes her nervous. She has not been sick recently. 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 Intelligence Consultant: Overdue-requests referral today. Mammo:UTD 05/25 Colonoscopy: due this year Mother had a stroke 73 years old [facility] Medical History Anxiety Surgical History H/O wisdom tooth extraction H/O eye surgery Family History Father Anxiety Mother Anxiety Parkinson disease Stroke Social History (Updated 03/10/25 @ 15:36 by Akiko Paez CMA) Household Members: Spouse and Children Housing: House Alcohol intake: current Alcohol intake frequency: holidays/special occasions only Patient Tobacco Use Status: Never used Tobacco e-Cigarette/Vaping Use: Never Used Use of substances other than those prescribed or required for medical reasons: No service: No Current occupational status: 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 1. Little interest or pleasure in doing things: several days 2. Feeling down, depressed, or hopeless: several days 3. Trouble falling or staying asleep, or sleeping too much: more than half the days 4. Feeling tired or having little energy: more than half the days 5. Poor appetite or overeating: several days 6. Feeling bad about yourself - or that you are a failure or have let yourself or your family down: not at all 7. Trouble concentrating on things, such as reading the newspaper or watching television: several days 8. Moving or speaking so slowly that other people could have noticed. Or the opposite - being so fidgety or restless that you have been moving around a lot more than usual: not at all 9. Thoughts that you would be better off or of hurting yourself in some way: not at all Total score: 8 Depression Screening Interpretation: Positive Depression Screening Done: Yes 22315 - PHQ-9 Billing: Yes Source: Developed by Drs. Librado Hi, Martine Freedman, Fer Timmons and colleagues, with an educational norbert from [employer]. Thrive Questionnaire Date Thrive assessed: 03/10/25 I am a: Patient What is your living situation today?: I have a steady place to live Within the past 12 months, did the food you bought not last and you didn't have the money to get more?: Never true Within the past 12 months, did you worry whether your food would run out before you got money to buy more?: Never true Do you have trouble paying for medicines?: No Do you have trouble getting transportation to medical appointments?: No Do you have trouble paying your heating and electricity bill?: No Do you have trouble taking care of your child, family member or friend?: No Do you have trouble with day-to-day activities such as bathing, preparing meals, shopping, managing finances, etc.?: No Are you currently unemployed and looking for a job?: No Are you interested in more education?: No Please select the resources that you would like help with: None Currently or been in a relationship where the following occur: No concerns reported THRIVE Score: 0 SANAM-7 AMB Questionnaire SANAM-7 Date SANAM - 7 assessed: 03/10/25 Feeling nervous, anxious, or on edge: 3 = Nearly every day Not being able to stop or control worryin = Nearly every day Worrying too much about different things: 3 = Nearly every day Trouble relaxin = Several days Being so restless that it is hard to sit still: 1 = Several days Becoming easily annoyed or irritable: 1 = Several days Source: Developed by Drs. Librado Hi, Martine Freedman, Fer Timmons and colleagues, with an educational norbert from [employer]. SANAM-7 Assessment Billing SANAM-7 Assessment Tool: SANAM-7 Assessment 18335 Physical exam (Primary Care) Tobacco/Smoking Status: Tobacco use Status Tobacco use date assessed 03/10/25 03/10/25 15:38 Patient Tobacco Use Status Never used Tobacco 03/10/25 15:38 e-Cigarette/Vaping Use Never Used 03/10/25 15:38 PHQ-9: PHQ-9 Score PHQ-9: Total score 8 03/10/25 15:38 Depression Screening Interpretation: Positive Thrive Assessment: Date of Thrive Assessment Date Thrive assessed 03/10/25 03/10/25 15:38 Currently or been in a relationship where the following occur: No concerns reported Telehealth Telehealth Telehealth Platform: Telephone Location of provider rendering services: practice address Location of patient: address on file Patient Identification confirmed using: Name, : Yes Telehealth method: voice only Patient verbally consented to treatment: Yes Patient verbally consented to billing insurance company: Yes Patient informed of any privacy concerns related to visit: Yes Minutes spent on Phone/Video with Pt.: 15 Results Reviewed Results Reviewed: Laboratory Tests 01/22/25 08:48 WBC 5.6 RBC 5.01 Hgb 14.9 Hct 44.3 Plt Count 313 Sodium 140 Potassium 3.9 Chloride 108 Carbon Dioxide 26 Anion Gap 10 L BUN 10 Creatinine 0.75 Estimated GFR > 60 Fasting Glucose 82 AST 19 ALT 12 Alkaline Phosphatase 66 Triglycerides 82 Cholesterol 225 H LDL Cholesterol, Calc 160 H HDL Cholesterol 49 Comparison: None Findings: Focused ultrasound evaluation performed in an area of palpable concern within the right anterior neck. There is a 2.0 x 0.5 x 1.1 cm normal morphology lymph node containing a fatty hilum in the area of palpable concern. A 7 mm TR 4 nodule was also noted within the right lobe of the thyroid gland. This does not meet criteria for follow-up. Impression: 1. There is a small lymph node within the neck in the area of palpable concern, most likely benign. This document has been electronically signed by: Beatriz Friedman MD on 02/18/2025 16:41:32 Coding Level of Care Code Est Pt Level 2 (88644) Diagnoses Lump in neck R22.1 Generalized anxiety disorder F41.1 Additional Codes SANAM-7 Assessment Billing - SANAM-7 Assessment Tool: SANAM-7 Assessment 54821 ([id number]) PHQ-9 - 45138 - PHQ-9 Billing: Yes ([id number]) Assessment & Plan Assessment & Plan (1) Lump in neck: Code(s): R22.1 - Localized swelling, mass and lump, neck Category: Medical Plan: Reviewed the ultrasound which was reassuring. We will reassess neck in 4-6 weeks. Labs ordered (2) Generalized anxiety disorder: Code(s): F41.1 - Generalized anxiety disorder Category: Medical Plan: Start Celexa. Discussed risks and benefits and adverse effects of this medication. Follow up in 4-6 weeks. Sooner if needed. Orders: Orders Complete Blood Count Auto Diff Today F41.1 - Generalized anxiety disorder, R22.1 - Localized swelling, mass and lump, neck Medications: New citalopram (Celexa) 10 mg PO DAILY 90 tabs 1RF
--- OUTSIDE RECORDS SUMMARY | 2025-03-10 17:41 | XMS_ITS | Encounter Summary ---
Author Organization [facility] Address [address] [place] [address] Care Team Providers Care Software Systems Architect Name Role Phone Jennifer Wright MD Primary Care Provider Charan newton [facility], Pcp Primary Care Provider Unavailabl e Encounter Details Date Type Department Care Team Description 06/16/2014 Orders Only SLITTING MACHINE OPERATOR - [address] [address] Social History Tobacco Use Types Packs/Day Years [...] on filedocumented in this encounter Care Teams Software Systems Architect Relationship Specialty Start Date End Date Jennifer Wright MD PCP - General 08/18/09 07/15/22 [facility], Pcp PCP - General Internal Medicine 07/16/22 documented as of this encounter
--- OUTSIDE RECORDS SUMMARY | 2025-03-10 17:41 | XMS_ITS | Encounter Summary ---
Author Organization [facility] Address [address] [place] [address] Care Team Providers Care Manager Statistics Name Role Phone Jennifer Wright MD Primary Care Provider [facility], Pcp Primary Care Provider Unavailabl e Reason for Visit * Reason Onset Date Comments E-prescribe Rx Request 2011 celexa Encounter Details Date Type Department Care Team Description 2011 Refill Medicine/Pediatrics - [address] [phone] Rose Marie Leyva PA-C E-prescribe Rx Request [...] THEIR PCP? 11/10 pt has been seeing kenna leyva and she had aphy with kenna at [...] is: Payor: [employer] POS Plan: PPO $0 [employer] [id number] Product Type: PPO [id number] documented in this encounter Plan of Treatment Not on file documented as of this encounter Visit Diagnoses Not on filedocumented in this encounter Care Teams Manager Statistics Relationship Specialty Start Date End Date Jennifer Wright MD PCP - General 08/18/09 07/15/22 [facility], Pcp PCP - General Internal Medicine 07/16/22 documented as of this encounter
--- OUTSIDE RECORDS SUMMARY | 2025-03-10 17:41 | XMS_ITS | Encounter Summary ---
Author Organization [facility] Address [address] [place] [address] Care Team Providers Care Apron Cleaner Name Role Phone Jennifer Wright MD Primary Care Provider Charan newton [facility], Pcp Primary Care Provider Unavailabl e Encounter Details Date Type Department Care Team Description 09/15/2019 Walk In Clinic Visit Medical Records [address] [place] [id number] [place] [address] Urgent Social History Tobacco Use Types Packs/Day Years [...] on filedocumented in this encounter Care Teams Apron Cleaner Relationship Specialty Start Date End Date Jennifer Wright MD PCP - General 08/18/09 07/15/22 [facility], Pcp PCP - General Internal Medicine 07/16/22 documented as of this encounter
--- OUTSIDE RECORDS SUMMARY | 2025-03-10 17:41 | XMS_ITS | Encounter Summary ---
Author Organization [facility] Address [address] [place] [address] Care Team Providers Care Home School Coordinator Name Role Phone Jennifer Wright MD Primary Care Provider [facility], Pcp Primary Care Provider Unavailabl e Reason for Visit * Reason Comments E-prescribe Rx Request Encounter Details Date Type Department Care Team Description 11/10/2021 Refill Medicine/Pediatrics - [address] [phone] Fabienne Henderson, POULTRY FARMWORKER E-prescribe Rx Request Social History Tobacco Use [...] Patients current insurance carrier is: Payor: [facility]/[employer] FFS / Plan: [employer] $15 / Product Type: HMO [id number] documented in this encounter Plan of Treatment Not on file documented as of this encounter Visit Diagnoses Not on filedocumented in this encounter Care Teams Home School Coordinator Relationship Specialty Start Date End Date Jennifer Wright MD PCP - General 08/18/09 07/15/22 [facility], Pcp PCP - General Internal Medicine 07/16/22 documented as of this encounter
== END 2025-03-10 17:05 ==
LOC: HO.HMCFM 15:59
PROVIDERS: PCP Physician Assistant; Visit Provider Physician Assistant
DX: R22.1 Localized swelling, mass and lump, neck (principal); F41.1 Generalized anxiety disorder

== ENCOUNTER → 2025-03-10 15:59 | Outpatient (BNVA) | payer BC, SELFPAY | PROVIDERS: PCP Physician Assistant; Visit Provider Physician Assistant | DX: R22.1 Localized swelling, mass and lump, neck (principal); F41.1 Generalized anxiety disorder | CPT/HCPCS: 96127 ==

== ENCOUNTER 2025-04-01 08:19 | Outpatient (AMB) | payer BC, SELFPAY ==
[2025-04-01 08:35] VITALS: BP 100/64; PULSE 64; RESP 12; O2SAT 98; BMI 28.5
--- NOTE | 2025-04-01 08:35 | MHC.PC.OV ---
Vital Signs 04/01/25 08:35 Height 5 ft 5 in Weight 171 lb BMI 28.5 BP 100/64 Blood Pressure Location Rt brachial Position Sitting Respiration 12 Pulse 64 Pulse Source Pulse Oximeter Pulse Oximetry (%) 98 Oxygen Delivery Method Room Air Intake Visit Reasons: 4 to 6 weeks f/u Allergies No Known Allergies Allergy (Verified 03/10/25 15:32) Medication List - Last Reconciled 04/01/25 by Leisa Bryant PA-C levonorgestrel (Mirena) intrauterine Tobacco use date assessed: 04/01/25 Dental Screening Dental Screen Date: 04/01/25 Did you have a dental visit in the last 12 months?: Yes Did you have a dental problem in the last 6 months where you did not have access to dental care?: No Was dental information given to patient?: Patient has dentist HPI 4 to 6 weeks f/u HPI Details Patient is a 44-year-old female who presents today for a follow up. Psych: She was seen recently and started on Celexa 10 mg. She states that for 1 week of you she increase the dosage to 20 mg which she finds very effective. States that the anxiety is significantly improved and that this is a very good dose for her. Lymph: She was seen a couple of months ago and noted to have a swollen lymph node of the right side of her neck. She says at times she can still feel the lymph node. There was an ultrasound done that was very reassuring in appear to be benign. She is scheduled for her mammogram and colonoscopy this summer. 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 1. Little interest or pleasure in doing things: not at all 2. Feeling down, depressed, or hopeless: not at all 3. Trouble falling or staying asleep, or sleeping too much: not at all 4. Feeling tired or having little energy: not at all 5. Poor appetite or overeating: several days 6. Feeling bad about yourself - or that you are a failure or have let yourself or your family down: not at all 7. Trouble concentrating on things, such as reading the newspaper or watching television: not at all 8. Moving or speaking so slowly that other people could have noticed. Or the opposite - being so fidgety or restless that you have been moving around a lot more than usual: not at all 9. Thoughts that you would be better off or of hurting yourself in some way: not at all Total score: 1 Depression Screening Interpretation: Negative Depression Screening Done: Yes 31641 - PHQ-9 Billing: Yes Source: Developed by Drs. Librado Hi, Martine Freedman, Fer Timmons and colleagues, with an educational norbert from [employer]. Thrive Questionnaire Date Thrive assessed: 12/14/24 I am a: Patient What is your living situation today?: I have a steady place to live Within the past 12 months, did the food you bought not last and you didn't have the money to get more?: Never true Within the past 12 months, did you worry whether your food would run out before you got money to buy more?: Never true Do you have trouble paying for medicines?: No Do you have trouble getting transportation to medical appointments?: No Do you have trouble paying your heating and electricity bill?: No Do you have trouble taking care of your child, family member or friend?: No Do you have trouble with day-to-day activities such as bathing, preparing meals, shopping, managing finances, etc.?: No Are you currently unemployed and looking for a job?: No Are you interested in more education?: No Please select the resources that you would like help with: None Currently or been in a relationship where the following occur: No concerns reported THRIVE Score: 0 SANAM-7 AMB Questionnaire SANAM-7 Date SANAM - 7 assessed: 04/01/25 Feeling nervous, anxious, or on edge: 0 = Not at all Not being able to stop or control worryin = Several days Worrying too much about different things: 1 = Several days Trouble relaxin = Not at all Being so restless that it is hard to sit still: 0 = Not at all Becoming easily annoyed or irritable: 0 = Not at all Feeling afraid as if something awful might happen: 0 = Not at all Total SANAM-7 score (0-4 normal; 5-9 mild; 10-14 moderate; 15-21 severe): 2 Source: Developed by Drs. Librado Hi, Martine Freedman, Fer Timmons and colleagues, with an educational norbert from [employer]. SANAM-7 Assessment Billing SANAM-7 Assessment Tool: SANAM-7 Assessment 18090 Physical exam (Primary Care) Vital Signs: Last Vital Signs Pulse 64 04/01/25 08:35 Resp 12 04/01/25 08:35 BP 100/64 04/01/25 08:35 Pulse Ox 98 04/01/25 08:35 Oxygen Delivery Method Room Air 04/01/25 08:35 BMI result Body Mass Index 28.5 Tobacco/Smoking Status: Tobacco use Status Tobacco use date assessed 04/01/25 04/01/25 08:37 Patient Tobacco Use Status Never used Tobacco 04/01/25 08:36 e-Cigarette/Vaping Use Never Used 04/01/25 08:36 PHQ-9: PHQ-9 Score PHQ-9: Total score 1 04/01/25 09:03 Depression Screening Interpretation: Negative Thrive Assessment: Date of Thrive Assessment Date Thrive assessed 12/14/24 04/01/25 08:36 Currently or been in a relationship where the following occur: No concerns reported Const Orientation/consciousness: patient oriented x3 HENMT Ears: hearing grossly normal bilaterally Neck Thyroid: Thyroid normal Lymphatic: no lymphadenopathy noted Resp Auscultation: clear to auscultation bilaterally Cardio Rate: regular rate Rhythm: regular rhythm Heart sounds: S1 normal heart sound present and S2 normal heart sound present GI Inspection: Yes normal to inspection Palpation (GI): Soft to palpation and Other GI palpation findings present (nontender, no cva tenderness) Auscultation: normoactive bowel sounds Rectal Exam - Female: deferred Skin General skin exam: no rashes or lesions noted Neuro General: patient oriented x3, gait normal and no focal motor deficits Coding Level of Care Code Est Pt Level 4 (82365) Complex EM visit Add On G2211 Diagnoses Lump in neck R22.1 Generalized anxiety disorder F41.1 Additional Codes SANAM-7 Assessment Billing - SANAM-7 Assessment Tool: SANAM-7 Assessment 86994 ([id number]) PHQ-9 - 28088 - PHQ-9 Billing: Yes ([id number]) Assessment & Plan Assessment & Plan (1) Lump in neck: Code(s): R22.1 - Localized swelling, mass and lump, neck Category: Medical Plan: We will recheck in 6 months from original ultrasound (2) Generalized anxiety disorder: Code(s): F41.1 - Generalized anxiety disorder Category: Medical Plan: Resolved with current regimen. Continue current regimen. Follow up in 6 months. Sooner if needed. Orders: Orders US soft tiss head and/or neck 4 Months R22.1 - Localized swelling, mass and lump, neck Medications: New citalopram (Celexa) 20 mg PO DAILY 90 tabs 2RF
== END 2025-04-01 10:57 | disposition home or self-care (01) ==
LOC: HO.HMCFM 08:20
PROVIDERS: PCP Physician Assistant; Visit Provider Physician Assistant
DX: R22.1 Localized swelling, mass and lump, neck (principal); F41.1 Generalized anxiety disorder

== ENCOUNTER → 2025-04-01 08:19 | Outpatient (BNVA) | payer BC, SELFPAY | PROVIDERS: PCP Physician Assistant; Visit Provider Physician Assistant | DX: R22.1 Localized swelling, mass and lump, neck (principal); F41.1 Generalized anxiety disorder | CPT/HCPCS: 96127 ==

== ENCOUNTER 2025-06-01 13:33 | Outpatient (REF) | payer BC, SELFPAY | END 2025-06-01 13:34 | disposition home or self-care (01) | LOC: HO.MAMMO 13:33 | PROVIDERS: PCP Family Medicine; Visit Provider Family Medicine | DX: Z12.31 Encounter for screening mammogram for malignant neoplasm of breast (principal) | CPT/HCPCS: 77063; 77067 ==

== ENCOUNTER → 2025-06-01 14:00 | Outpatient (BNV) | payer BC, SELFPAY | PROVIDERS: PCP Family Medicine; Visit Provider Internal Medicine | DX: Z12.31 Encounter for screening mammogram for malignant neoplasm of breast (principal) | CPT/HCPCS: 77063; 77067 ==

== ENCOUNTER 2025-08-03 15:09 | Outpatient (REF) | payer BC, SELFPAY ==
--- NOTE | ~2025-08-03 | US_ITS ---
EXAMINATION: US THYROID CLINICAL INFORMATION: Localized swelling, mass and lump in neck.. COMPARISON: Ultrasound limited neck 02/16/2025 TECHNIQUE: Routine ultrasound imaging through the area of palpable lump was performed. FINDINGS: Imaging through the right neck level 2 reveals a small lymph node measuring 1.1 x 0.4 x 0.5 cm corresponding to area of palpable lump. There is a small lymph node or submandibular space images are submitted gland measuring 2.4 x 0.6 x 1.3 cm. Previously measured 2.0 x 0.5 x 1.1 cm. Thyroid gland was not evaluated. US/US soft tiss head and/or neck IMPRESSION: Right submandibular space lymph node is somewhat stable now measuring 2.4 cm. It it has a benign appearance. There is a level 3 lymph node measuring 1.1 cm corresponding to patient's complaint of feeling a lump at this site. It appears benign. Electronically signed by: Kavin Romeo MD 08/04/2025 08:12 AM EDT
--- OUTSIDE RECORDS SUMMARY | 2025-08-03 16:19 | XMS_ITS ---
Author Name [facility] Organization Unknown Care Team Organization Name Specialty Phone Email Start Date End Da te [facility] Termed, PROVIDER Primary Care 10/09/202207/02
--- OUTSIDE RECORDS SUMMARY | 2025-08-03 16:19 | XMS_ITS | Encounter Summary ---
Author Organization [facility] Address [address] [place] [address] Care Team Providers Care Electrical Control Assembler Name Role Phone Jennifer Wright MD Primary Care Provider Charan newton [facility], Pcp Primary Care Provider Unavailabl e Encounter Details Date Type Department Care Team Description 06/16/2014 Orders Only HAND SAMPLE MAKER - [address] [address] Social History Tobacco Use Types Packs/Day Years [...] on filedocumented in this encounter Care Teams Electrical Control Assembler Relationship Specialty Start Date End Date Jennifer Wright MD PCP - General 08/18/09 07/15/22 [facility], Pcp PCP - General Internal Medicine 07/16/22 documented as of this encounter
--- OUTSIDE RECORDS SUMMARY | 2025-08-03 16:20 | XMS_ITS | Encounter Summary ---
Author Organization [facility] Address [address] [place] [address] Care Team Providers Care Director Of Field Sales Name Role Phone Jennifer Wright MD Primary Care Provider Charan newton [facility], Pcp Primary Care Provider Unavailabl e Encounter Details Date Type Department Care Team Description 09/15/2019 Walk In Clinic Visit Medical Records [address] [place] [id number] [place] [address] Urgent Social History Tobacco Use Types Packs/Day [...] on filedocumented in this encounter Care Teams Director Of Field Sales Relationship Specialty Start Date End Date Jennifer Wright MD PCP - General 08/18/09 07/15/22 [facility], Pcp PCP - General Internal Medicine 07/16/22 documented as of this encounter
--- OUTSIDE RECORDS SUMMARY | 2025-08-03 16:20 | XMS_ITS | Encounter Summary ---
Author Organization [facility] Address [address] [place] [address] Care Team Providers Care Chain Carrier Name Role Phone Jennifer Wright MD Primary Care Provider [facility], Pcp Primary Care Provider Unavailabl e Reason for Visit * Reason Comments E-prescribe Rx Request Encounter Details Date Type Department Care Team Description 11/10/2021 Refill Medicine/Pediatrics - [address] [id number] Fabienne Henderson, BIOTECH PRODUCTION SPECIALIST E-prescribe Rx Request Social History Tobacco Use [...] N/A Patients current insurance carrier is: Payor: [facility]/[employer] FFS / Plan: [email or web address] $15 / Product Type: HMO [id number] documented in this encounter Plan of Treatment Not on file documented as of this encounter Visit Diagnoses Not on filedocumented in this encounter Care Teams Chain Carrier Relationship Specialty Start Date End Date Jennifer Wright MD PCP - General 08/18/09 07/15/22 [facility], Pcp PCP - General Internal Medicine 07/16/22 documented as of this encounter
== END 2025-08-03 15:10 | disposition home or self-care (01) ==
LOC: HO.US 15:09
PROVIDERS: PCP Family Medicine; Visit Provider Physician Assistant
DX: R22.1 Localized swelling, mass and lump, neck (principal)
CPT/HCPCS: 76536

== ENCOUNTER → 2025-08-03 15:11 | Outpatient (BNV) | payer BC, SELFPAY | PROVIDERS: PCP Family Medicine; Visit Provider Radiology Diagnostic Radiology | DX: R22.1 Localized swelling, mass and lump, neck (principal) | CPT/HCPCS: 76536 ==

== ENCOUNTER 2025-10-26 12:23 | Outpatient (AMB) | payer BC, SELFPAY ==
--- NOTE | 2025-10-26 12:28 | A.OFFVIS_ITS ---
Vital Signs 10/26/25 12:48 Height 5 ft 5 in Weight 180 lb 12.465 oz BMI 30.1 BP not taken reason Medical Reason Pulse 78 Intake Visit Reasons: Colonoscopy Screening Intake Note: Provider ramya patient Allergies No Known Allergies Allergy (Verified 03/10/25 15:32) HPI HPI Colonoscopy Screening: Details: 45-year-old female here for preprocedural meeting to discuss a screening colon oscopy. She is referred by Leisa Bryant. PMX Obesity-BMI 33 Anxiety High cholesterol * SURGICAL HISTORY [place] tooth extraction Eye surgery * ALLERGIE: NKDA * [facility]: Laboratory Tests 01/22/25 08:48 WBC 5.6 Hgb 14.9 Hct 44.3 Plt Count 313 Estimated GFR > 60 Total Bilirubin 0.9 AST 19 ALT 12 Alkaline Phosphatase 66 TSH 1.34 TODAY'S VISIT First colonoscopy? Yes Bowel or upper GI problems: No Cardiac or respiratory problems: No Anesthesia sedation problems: Naive Infectious disease problems:No Family history: paternal grandfather deid crc age 92 and father had polyps. [facility] Medical History (Updated 10/26/25 @ 12:50 by YURI Jim) Screening for cervical cancer Screen for colon cancer Screening mammogram for breast cancer Adult general medical exam Normal physical exam, routine Laboratory exam ordered as part of routine general medical examination Anxiety Surgical History H/O wisdom tooth extraction H/O eye surgery Family History Father Anxiety Mother Anxiety Parkinson disease Stroke Social History (Updated 03/10/25 @ 15:36 by Akiko Paez CMA) Household Members: Spouse and Children Housing: House Alcohol intake: current Alcohol intake frequency: holidays/special occasions only Patient Tobacco Use Status: Never used Tobacco e-Cigarette/Vaping Use: Never Used service: No Current occupational status: 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 Sexual orientation: Straight/Heterosexual Gender identity: Female Cognitive needs: No Hearing needs: No Vision needs: No Review of Systems Const Denies fatigue, Denies fever(s), Denies night sweats, Denies poor appetite and Denies weight loss Eyes Details: Classes Reports requires corrective lenses ENT Reports Normal hearing present, Denies dental pain, Denies dysphagia, Denies hearing loss, Denies mouth pain, Denies odynophagia, Denies throat swelling, Denies tongue swelling and Reports other (Dentition adequate) Card Reports no additional complaints Resp Reports no additional complaints GI Details: Denies abdominal pain, Denies melena, Denies bloating, Denies hematochezia, Denies constipation, Denies GI cramping, Denies dysphagia, Denies excessive flatus, Denies early satiety, Denies heartburn, Denies diarrhea, Denies nausea, Denies odynophagia, Denies vomiting and Denies hematemesis Skin/Breast Denies pruritus, Denies lesions, Denies rash and Denies jaundice Neuro Reports Normal hearing present and Denies Abnormal speech present Endo Denies fatigue Aller/Immun Denies throat swelling and Denies tongue swelling Physical Exam Const General: cooperative, no acute distress, well developed and well groomed Nutritional Appearance: well nourished and obese Orientation/consciousness: oriented to person, oriented to place and oriented to time Limitations: No language barrier HEENT Head: Yes normocephalic and Yes atraumatic Eyes General: appearance normal, both eyes and all related structures Pupils: Equal, round and reactive pupils present Neck Neck: Yes normal visual inspection and Yes no lymphadenopathy Thyroid: Thyroid normal Resp Effort & Inspection: normal respiratory effort and able to speak in complete sentences Auscultation: clear to auscultation bilaterally Cardio Rate: regular rate Rhythm: regular rhythm Heart sounds: Normal, physiologic split S2 sound present Peripheral pulses: radial pulses present and posterior tibial pulses present GI Inspection: No distended, No Abdominal panniculus present and Yes obesity Palpation (GI): Soft to palpation, nontender, no guarding, not rigid and No hepatosplenomegaly present Percussion: Yes normal to percussion Auscultation: normal bowel sounds Rectal Exam - Female: deferred Skin General skin exam: no rashes or lesions noted, turgor normal, skin not dry, no jaundice, No spider nevi and no striae Rashes: no rashes Nails: normal Neuro General: oriented to person, oriented to place and oriented to time Cranial nerves: Yes Equal, round and reactive pupils present and Yes Normal hearing present Speech: No Abnormal speech present Extrem General: Yes normal to inspection, No clubbing, No cyanosis and No edema Psych Appearance: grossly normal and well kempt Mental Status: mental status grossly normal Speech and movement: Normal speech and movement present Affect: normal affect Attitude: cooperative Thought process: Normal thought process present and not confabulating Thought content: Normal thought content present Insight: Good insight present (Psych) Judgement: Good judgement present (Psych) Assessment & Plan Assessment & Plan (1) BMI 32.0-32.9,adult: Code(s): Z68.32 - Body mass index [BMI] 32.0-32.9, adult Category: Medical (2) Pre-op examination: Code(s): Z01.818 - Encounter for other preprocedural examination Category: Medical (3) Family history of polyps in the colon: Comment: father, paternal grandfather crc age 92 Code(s): Z83.719 - Family history of colon polyps, unspecified Category: Medical Plan First colonoscopy? Yes Bowel or upper GI problems: No Cardiac or respiratory problems: No Anesthesia sedation problems: Naive Infectious disease problems:No Family history: paternal grandfather deid crc age 92 and father had polyps. Orders: Referrals GI Procedure Notification Z01.818 - Encounter for other preprocedural examination, Z68.32 - Body mass index [BMI] 32.0-32.9, adult Medications: New bisacodyl (Dulcolax (bisacodyl)) 10 mg (2 x 5 mg) PO BEDTIME 4 tabs 0RF 2 days peg 3350-electrolytes 236-22.74-6.74 -5.86 gram (Golytely) until fecal effluent is clear; do not exceed a total volume of 2,000 mL 240 mL PO Q10M 4,000 mL 0RF 1 day Z12.11 - Encounter for screening for malignant neoplasm of colon Coding Level of Care Code New Pt Level 3 (37183) Diagnoses BMI 32.0-32.9,adult Z68.32 Pre-op examination Z01.818 Family history of polyps in the colon Z83.719
[2025-10-26 12:48] VITALS: PULSE 78; BMI 30.1
== END 2025-10-26 12:47 | disposition home or self-care (01) ==
LOC: HO.HGI 12:24
PROVIDERS: PCP Family Medicine; Visit Provider Nurse Practitioner
DX: Z01.818 Encounter for other preprocedural examination (principal); Z12.11 Encounter for screening for malignant neoplasm of colon; Z83.719 Family history of colon polyps, unspecified
CPT/HCPCS: S0285